=== PATIENT | male | born 1995 | race Caucasian/White ===

== ENCOUNTER 2024-12-23 15:00 | Emergency (ER) | payer OTHER ==
[~2024-12-23] VITALS: Ht 185.4 cm; Wt 75.3 kg
[2024-12-23 15:07] VITALS: BP 137/75; PULSE 86; RESP 18; O2SAT 100
--- NOTE | 2024-12-23 16:30 | RADIOLOGY REPORT ---
CLINICAL INDICATION: LT.KNEE PAIN TECHNIQUE: DI KNEE, COMP 4 VW MIN Comparison: None FINDINGS/IMPRESSION: : There is no evidence of acute fracture or dislocation. Small joint effusion
--- NOTE | 2024-12-23 16:41 | Physician Documentation ---
History of Present Illness ~ Chief Complaint: Knee Pain Stated Complaint: L LEG PAIN Time Seen by MD: 15:29 HPI Patient on exam states he fell off of the table onto his left knee on the concrete while at work last [employer] about four or five days ago. Patient states his knee is still hurting and he is having trouble walking because of pain. Patient has no other concern or complaint at this time. Tetanus witin 5 years: No Medication Reconciliation Allergies: Coded Allergies: codeine (Verified Allergy, Intermediate, HIVES, 12/23/24) Review of Systems Constitutional: Denies: chills, fever, weakness Eyes: Denies: pain, blurred vision ENT: Denies: ear pain, nose pain, throat pain, mouth pain Respiratory: Denies: cough, shortness of breath Cardiovascular: Denies: chest pain, palpitations Gastrointestinal: Denies: abdominal pain, nausea, vomiting Genitourinary: Denies: burning, dysuria Male Genitalia: Denies: penile discharge, testicular pain Neurological: Denies: headache, dizziness Musculoskeletal: Denies: pain, swelling Integumentary: Denies: rash, lesions Allergic/Immunologic: Denies: hives, itching Hematologic/Lymphatic: Denies: no symptoms reported Psychiatric: Denies: depression, anxiety Physical Exam Vital Signs: Temperature: 97.9, Source: Oral, Heart Rate: 86, Respiratory Rate: 18, BP: 137/75, Pulse Oximetry: 100, Weight: 75.300 Oxygen Flow Rate: 0 Physical Exam General: Awake and Alert, no acute distress. HEENT: Conjunctiva pink, Sclera clear, Mucus Membranes moist. Neck: Supple without masses and tenderness. Resp: Unlabored. Lungs clear to auscultation bilaterally. Heart: Regular Rate and rhythm, normal S1 and S2 without murmur, rub or gallop. Musculoskeletal: Patient on exam has mild abrasion on the lateral aspect of patient's left patella, minimal swelling, no ecchymosis, significant tenderness to palpation of the anterior surface and lateral aspect of the left patella. Patient does have near full range of motion of the left knee in flexion and extension in his neurovascularly intact distally. Motor function intact distally. Strength intact distally. Extremities: No cyanosis,clubbing or edema. Skin: Warm and Dry. Progress Results/Orders Results/Orders Vital Signs 12/23/24 15:07 Temp 97.9 Pulse 86 Resp 18 B/P (MAP) 137/75 Pulse Ox 100 O2 Flow Rate 0 EKG/XRAY/CT/US/VASC/MRI Bone/Soft Tissue X-Ray (Ext.) : Additional Comment X-ray of the left knee interpreted by myself today shows no sign of acute fracture, bones in anatomic alignment, small joint effusion. DIAGNOSTIC RADIOLOGY Patient: SAVANNAH BARRETT Medical Record: [id number] [facility] : 1995, Age: 29 Sex: Male Location: ER Patient Status: [facility] ER Service Date/Time: 12/23/241511 Ordering Physician: ALLYN WHITFIELD MD Exam: KNEE, COMP 4 VW MIN CLINICAL INDICATION: LT.KNEE PAIN TECHNIQUE: DI KNEE, COMP 4 VW MIN Comparison: None FINDINGS/IMPRESSION: : There is no evidence of acute fracture or dislocation. Small joint effusion Electronically Signed by:DOMINICK FIELDS MD Date & Time: 12/23/241627 Dictated by: DOMINICK FIELDS MD Dictation date and time: 12/23/241627 Primary Care Provider: NO PRIMARY CARE PROVIDER cc: ALLYN WHITFIELD MD ~ Medical Decision Making Findings Patient on exam states he fell off of the table onto his left knee on the concrete while at work last Sunday about four or five days ago. Patient states his knee is still hurting and he is having trouble walking because of pain. Patient has no other concern or complaint at this time. Patient did have x-ray taken of the left knee that shows no sign of acute fracture, patient will be kept off work for about four more days after which patient will follow up with primary care for further eval and treatment. Patient will return to ED with any worsening, concerning or changing symptoms. Patient will continue Tylenol and ibuprofen as needed for symptomatic relief. Departure Disposition: HOME / SELF CARE / HOMELESS Impression: Primary Impression: Knee pain Qualified Codes: M25.562 - Pain in left knee Condition: Stable Discharge Instructions: Acute Knee Pain, Adult Additional Instructions: Patient did have x-ray taken of the left knee that shows no sign of acute fracture, patient will be kept off work for about four more days after which patient will follow up with primary care for further eval and treatment. Patient will return to ED with any worsening, concerning or changing symptoms. Patient will continue Tylenol and ibuprofen as needed for symptomatic relief. Departure Forms: Excuse form Work or School Excused From: Work Excuse beginning now through the following date: Dec 28, 2024 Referrals: NO PRIMARY CARE PROVIDER (PCP) Signature Scribe Signature: No scribe Attestation: No scribe ALONSO RINCON Dec 23, 2024 16:41
[2024-12-23 16:53] VITALS: TEMP 97.9
== END 2024-12-23 16:55 | disposition home or self-care (01) ==
LOC: ER 15:02
DX: M25.562 Pain in left knee (principal); Z88.5 Allergy status to narcotic agent
CPT/HCPCS: 73564; 99283